=== PATIENT | male | born 1975 | race Caucasian/White ===

== ENCOUNTER 2024-05-01 09:46 | Inpatient (IN) | payer OTHER ==
[2024-05-01 10:14] VITALS: BMI 20.3
[2024-05-01] MEDS ORDERED: ONDANSETRON *ODT* 4 MG TABLET SL PRN (10:24)
[2024-05-01] MEDS ORDERED: guaiFENesin 600 MG TABLET.ER (FP) PO PRN (10:24)
[2024-05-01] MEDS ORDERED: MAGNESIUM HYDROX 2400MG/30ML ORAL SUSPENSION 30 ML CUP PO PRN (10:24)
[2024-05-01] MEDS ORDERED: DICYCLOMINE HCL 10 MG CAPSULE PO PRN (10:24)
[2024-05-01] MEDS ORDERED: IBUPROFEN 400 MG TABLET (FP) PO PRN (10:24)
[2024-05-01] MEDS ORDERED: BENZOCAINE/MENTHOL (CHLORASEPTIC ) LOZENGE MM PRN (10:24)
[2024-05-01] MEDS ORDERED: LOPERAMIDE HCL 2 MG CAPSULE PO PRN (10:24)
[2024-05-01] MEDS ORDERED: NICOTINE POLACRILEX 2 MG LOZENGE BC PRN (10:24)
[2024-05-01] MEDS ORDERED: BENZONATATE 200 MG CAPSULE PO PRN (10:24)
[2024-05-01] MEDS ORDERED: ACETAMINOPHEN 325 MG TABLET (FP) PO PRN (10:24)
[2024-05-01] MEDS ORDERED: NALOXONE (NARCAN) HCL 4 MG/0.1 ML SPRAY NS PRN (10:24)
[2024-05-01] MEDS ORDERED: BISMUTH SUBSALICYLATE 262 MG/15 ML BTL PO PRN (10:24)
[2024-05-01] MEDS ORDERED: POLYETHYLENE GLYCOL (HEALTHYLAX) 3350 17 GM PACKET PO PRN (10:24)
[2024-05-01] MEDS ORDERED: MAG HYDROX/AL HYDROX/SIMETH 30 ML UNIT-DOSE CUP PO PRN (10:24)
[2024-05-01] MEDS ORDERED: levETIRAcetam 500 MG TABLET (FP) PO ONE (12:14)
[2024-05-01] MEDS ORDERED: LORazepam 2 MG TABLET ONE (12:14)
[2024-05-01] MEDS: levETIRAcetam 500 MG TABLET (FP) PO SCH (12:15)
[2024-05-01] MEDS: LORazepam 2 MG TABLET PO SCH (12:15)
[2024-05-01] MEDS ORDERED: LORazepam 1 MG TABLET ONE (12:31)
[2024-05-01] MEDS: LORazepam 1 MG TABLET PO PRN (12:33)
[2024-05-01] MEDS: DOXYCYCLINE HYCLATE 100 MG TABLET PO SCH (17:24)
[2024-05-01] MEDS: METHOCARBAMOL 500 MG TABLET PO PRN (17:27)
[2024-05-01] MEDS: NICOTINE POLACRILEX 2 MG GUM BUC PRN (17:47)
[2024-05-01] MEDS: THIAMINE 100 MG TABLET PO SCH (22:41)
[2024-05-01] MEDS: MELATONIN 5 MG TABLETS PO SCH (22:41)
[2024-05-02 10:14] LABS: HEMATOCRIT 37.5 % (35.4-49); HEMOGLOBIN 12.4 GM/dL (11.7-16.9); MCH 28.9 pg (25.7-33.7); MEAN CELL VOLUME 87.8 fl (80-96); MEAN PLT VOLUME 8.2 fl (7.5-11.1); PLATELET COUNT 172 10^3/uL (134-434); RBC 4.28 M/mm3 (4.00-5.60); RDW 18.5 % (11.9-15.9); WHITE BLOOD COUNT 8.1 K/mm3 (4.0-10.0)
[2024-05-02] MEDS: PRENATAL VITAMINS W/ FOLIC ACID TABLET (FP) PO SCH (10:24)
[2024-05-02] MEDS: NICOTINE 21 MG/24 HOURS TOPICAL PATCH TD SCH (11:55)
[2024-05-02 13:33] LABS: POTASSIUM 3.7 mmol/L (3.5-5.1)
[2024-05-02 13:38] LABS: ALBUMIN 3.3 g/dl (3.4-5.0); BLOOD UREA NITROGEN 9.9 mg/dL (7-18)
[2024-05-02 13:40] LABS: CALCIUM 9.2 mg/dL (8.5-10.1)
[2024-05-02 13:41] LABS: BILIRUBIN,TOTAL 0.7 mg/dL (0.2-1)
[2024-05-02 13:42] LABS: TOT PROT 6.4 g/dl (6.4-8.2)
[2024-05-02 13:46] LABS: CREATININE 0.6 mg/dL (0.55-1.3)
[2024-05-02] MEDS: SUVOREXANT 10 MG TABLET PO PRN (22:03)
[2024-05-03] MEDS: LORazepam 1 MG TABLET PO SCH (05:27)
[2024-05-03 06:44] VITALS: RESP 16
[2024-05-03 08:46] VITALS: BP 128/76; PULSE 60; TEMP 98.7
[2024-05-03] MEDS: IBUPROFEN 600 MG TABLET (FP) PO PRN (10:03)
[2024-05-03] MEDS: NALOXONE (NYS OPIOID OVERDOSE PROGRAM) 4 MG/0.1 ML SPRAY NS SCH (12:05)
[2024-05-04] MEDS ORDERED: LORazepam 0.5 MG TABLET PO PRN
[2024-05-04] MEDS ORDERED: LORazepam 0.5 MG TABLET PO SCH (05:00)
[2024-05-05] MEDS ORDERED: LORazepam 0.5 MG TABLET PO ONE (05:00)
== END 2024-05-03 13:18 | disposition left against medical advice (07) | DRG 770 ==
LOC: YASAS 09:46 → Y6N 12:10
PROVIDERS: ADMIT Allergy & Immunology; ATTEND Allergy & Immunology
PROC: HZ2ZZZZ Detoxification Services for Substance Abuse Treatment (ICD-10-PCS; principal; 2024-05-01)
DX: F10.230 Alcohol dependence with withdrawal, uncomplicated (principal); F14.20 Cocaine dependence, uncomplicated; F13.20 Sedative, hypnotic or anxiolytic dependence, uncomplicated; F17.210 Nicotine dependence, cigarettes, uncomplicated; F19.280 Other psychoactive substance dependence with psychoactive substance-induced anxiety disorder; F19.282 Other psychoactive substance dependence with psychoactive substance-induced sleep disorder; K74.60 Unspecified cirrhosis of liver; Z87.01 Personal history of pneumonia (recurrent); Z87.19 Personal history of other diseases of the digestive system; Z59.01 Sheltered homelessness
CPT/HCPCS: 36415; 80053; 80305; 80307; 85027; 86780; 93005; 93010